=== PATIENT | male | born 1990 | race Caucasian/White ===

== ENCOUNTER 2021-06-25 17:24 | Emergency (ER) | payer OTHER ==
[2021-06-25 17:59] VITALS: BP 140/79; PULSE 84; TEMP 97.8; BMI 25.7
[2021-06-25 19:15] LABS: BASO % 0.3 % (0-2.0); EOS % 0.4 % (0-4.5); HEMATOCRIT 44.1 % (35.4-49); HEMOGLOBIN 15.5 GM/dL (11.7-16.9); LYMPH % 18.9 % (8-40); MCH 30.9 pg (25.7-33.7); MCHC 35.1 g/dl (32.0-35.9); MEAN CELL VOLUME 87.9 fl (80-96); MEAN PLT VOLUME 7.5 fl (7.5-11.1); MONO % 5.2 % (3.8-10.2); NEUT % 75.2 % (42.8-82.8); PLATELET COUNT 255 10^3/uL (134-434); RBC 5.01 M/mm3 (4.00-5.60); RDW 12.9 % (11.9-15.9); WHITE BLOOD COUNT 9.2 K/mm3 (4.0-10.0)
[2021-06-25 19:35] LABS: CALCIUM 9.9 mg/dL (8.5-10.1)
[2021-06-25 19:36] LABS: BLOOD UREA NITROGEN 17.9 mg/dL (7-18)
[2021-06-25 19:40] LABS: BILIRUBIN,TOTAL 0.6 mg/dL (0.2-1); TOT PROT 8.2 g/dl (6.4-8.2)
== END 2021-06-25 20:41 | disposition home or self-care (01) ==
LOC: JER 17:24
DX: R07.9 Chest pain, unspecified (principal)
CPT/HCPCS: 36415; 71046-TC-FY; 80053; 84484; 85025; 93005; 93010; 99281-25